=== PATIENT | female | born 1945 | race Hispanic/Latino ===

== ENCOUNTER 2017-01-04 11:05 | Outpatient (CLI) | payer MEDICARE, OTHER ==
--- NOTE | 2017-01-05 11:25 | PET Report ---
WHOLE BODY PET/CT:01/04/17 CLINICAL: Melanoma restaging. RADIOPHARMACEUTICAL: 14.43mCi F18-FDG. COMPARISON: 11/09/16 PET/CT TECHNIQUE- Following intravenous injection of F-18 FDG and an approximately 60 minute uptake period, CT and PET images from the top of the cranium through the feet were acquired with the patient in the fasted state. No contrast was administered. The CT protocol used for this PET CT study is designed for attenuation correction and anatomic localization of PET abnormalities. This engineering mgr CT is not desired to produce and cannot replace, rnail-gh-set-art diagnostic CT scans with specific imaging protocols for different body parts and indications. Plasma glucose at the time of this test: 107g/dl. The standardized uptake values (SUV) are normalized to patient body weight and indicate the highest activity concentration (SUV max) in a given disease site. FINDINGS: Brain--Physiologic FDG uptake in the visualized regions of the brain. Neck--No abnormal uptake. Chest--Physiologic FDG uptake in mediastinal blood pool and myocardium. Lungs--No abnormal uptake. No pulmonary nodule or mass. Pleura/pericardium--No abnormal uptake. Thoracic nodes--No abnormal uptake. Mediastinal lymph nodes have decreased in size and the FDG uptake in mediastinal lymph nodes has resolved. Hepatobiliary--No abnormal uptake. Liver background SUV mean, as a reference for comparing FDG studies, is 4.5 compared to 3.8 on the last exam. Spleen--No abnormal uptake. Pancreas--No abnormal uptake. Adrenal Glands--No abnormal uptake. Kidneys/Ureters/Bladder--No abnormal uptake. Abdominopelvic Nodes--No abnormal uptake. Bowel/Peritoneum/Mesentery--No abnormal uptake. Pelvic organs--No abnormal uptake. Bones/Soft Tissues--No abnormal uptake. Extremities--No abnormal uptake. IMPRESSION: Negative study with resolution of FDG avid mediastinal lymphadenopathy.
== END 2017-01-04 11:06 | disposition home or self-care (01) ==
LOC: PET 11:05
PROVIDERS: ATTEND Internal Medicine Hematology & Oncology
DX: C43.52 Malignant melanoma of skin of breast (principal)
CPT/HCPCS: 78815; 82962; A9552

== ENCOUNTER 2017-03-29 10:49 | Outpatient (CLI) | payer MEDICARE, OTHER ==
--- NOTE | 2017-03-31 10:09 | PET Report ---
WHOLE BODY PET/CT:03/29/17 CLINICAL: Melanoma restaging. RADIOPHARMACEUTICAL: 14.213mCi F18-FDG. COMPARISON: 01/04/17 and 11/09/16 PET/CT TECHNIQUE- Following intravenous injection of F-18 FDG in a left antecubital vein and an approximately 60 minute uptake period, CT and PET images from the top of the cranium through the feet were acquired with the patient in the fasted state. No contrast was administered. The CT protocol used for this PET CT study is designed for attenuation correction and anatomic localization of PET abnormalities. This help desk operator CT is not desired to produce and cannot replace, poutl-vo-fgj-art diagnostic CT scans with specific imaging protocols for different body parts and indications. Plasma glucose at the time of this test: 97g/dl. The standardized uptake values (SUV) are normalized to patient body weight and indicate the highest activity concentration (SUV max) in a given disease site. FINDINGS: Brain--Physiologic FDG uptake in the visualized regions of the brain. Neck--No abnormal uptake. Chest--Physiologic FDG uptake in mediastinal blood pool and myocardium. Status post right mastectomy. Lungs--No abnormal uptake. No pulmonary nodule or mass. Pleura/pericardium--No abnormal uptake. Thoracic nodes--Multiple bilateral hilar and mediastinal FDG avid lymph nodes. However, the lymph nodes are stable in size since the last 2 exams and the FDG uptake is slightly less than on the 11/09/16 exam. Right retrocaval pretracheal lymph node with SUV 5.5 compared to 6.3. AP window lymph node with SUV 5.0 compared to 6.1. Hepatobiliary--No abnormal uptake. Liver background SUV mean is 4.1 compared to 4.4. No liver mass. Spleen--No abnormal uptake. Pancreas--No abnormal uptake. Adrenal Glands--No abnormal uptake. Kidneys/Ureters/Bladder--No abnormal uptake. Abdominopelvic Nodes--No abnormal uptake. Bowel/Peritoneum/Mesentery--No abnormal uptake. Pelvic organs--No abnormal uptake. Bones/Soft Tissues--No abnormal uptake. Extremities--No abnormal uptake. IMPRESSION: Probably benign recurrent FDG uptake in mediastinal and bilateral hilar lymph nodes. This may be explained by a URI. The study is otherwise negative.
== END 2017-03-29 10:50 | disposition home or self-care (01) ==
LOC: PET 10:49
PROVIDERS: ATTEND Internal Medicine Hematology & Oncology
DX: C43.52 Malignant melanoma of skin of breast (principal); Z90.11 Acquired absence of right breast and nipple
CPT/HCPCS: 78815; 82962; A9552

== ENCOUNTER 2017-07-05 10:58 | Outpatient (CLI) | payer MEDICARE, OTHER ==
--- NOTE | 2017-07-06 15:15 | PET Report ---
WHOLE BODY PET/CT:07/05/17 CLINICAL: Melanoma restaging. RADIOPHARMACEUTICAL: 15.85mCi F18-FDG. COMPARISON: 03/29/17 PET/CT TECHNIQUE- Following intravenous injection of F-18 FDG and an approximately 60 minute uptake period, CT and PET images from the top of the cranium through the feet were acquired with the patient in the fasted state. No contrast was administered. The CT protocol used for this PET CT study is designed for attenuation correction and anatomic localization of PET abnormalities. This floorworker lasting CT is not desired to produce and cannot replace, lgfcc-mm-vtg-art diagnostic CT scans with specific imaging protocols for different body parts and indications. Plasma glucose at the time of this test: 105g/dl. The standardized uptake values (SUV) are normalized to patient body weight and indicate the highest activity concentration (SUV max) in a given disease site. FINDINGS: Brain--Physiologic FDG uptake in the visualized regions of the brain. Neck--No abnormal uptake. Chest--Physiologic FDG uptake in mediastinal blood pool and myocardium. Lungs--No abnormal uptake. No pulmonary nodule or mass. Pleura/pericardium--No abnormal uptake. Thoracic nodes--Mediastinal lymph nodes are either stable in size or smaller with lower SUV. The right retrocaval lymph node SUV 4.0 compared to 5.5. The AP window lymph node measures 3.5 x 5.0. Hilar lymph nodes have lower SUV. Hepatobiliary--No abnormal uptake. Liver background SUV mean, as a reference for comparing FDG studies, is 4.4 compared to 4.7. Spleen--No abnormal uptake. Pancreas--No abnormal uptake. Adrenal Glands--No abnormal uptake. Kidneys/Ureters/Bladder--No abnormal uptake. Abdominopelvic Nodes--No abnormal uptake. Bowel/Peritoneum/Mesentery--No abnormal uptake. Pelvic organs--No abnormal uptake. Bones/Soft Tissues--No abnormal uptake. Extremities--No abnormal uptake. No mass or lymphadenopathy. IMPRESSION: Decreased FDG uptake in mediastinal and bilateral hilar lymph nodes consistent with benign pathology. No suspicious findings.
== END 2017-07-05 10:59 | disposition home or self-care (01) ==
LOC: PET 10:58
PROVIDERS: ATTEND Internal Medicine Hematology & Oncology
DX: C43.52 Malignant melanoma of skin of breast (principal); I10 Essential (primary) hypertension; E78.00 Pure hypercholesterolemia, unspecified; I25.10 Atherosclerotic heart disease of native coronary artery without angina pectoris; Z79.899 Other long term (current) drug therapy
CPT/HCPCS: 78816; 82962; A9552

== ENCOUNTER 2017-07-10 09:36 | Emergency (ER) | payer MEDICARE, OTHER ==
[2017-07-10] MEDS ORDERED: NACL 0.9% 1000 ML 1,000 ML IV ONE ×2 (10:00→10:19)
--- NOTE | 2017-07-10 10:01 | Emergency Department Report ---
Stated Complaint: WEAKNESS Time Seen by Provider: 07/10/17 09:57 - HPI History of Present Illness: PT c/o chemo. PT with generalized weakness today. PT reports subjective fever , treat with Tylenol - ROS Review of Systems: + subjective fever + decreased po intake - Exam Physical Exam: Pt is alert and appropriate, MSE screening note: Focused history and physical exam performed. Due to findings the following was ordered: ekg, labs, fluids ED Disposition for MSE Condition: Stable
--- NOTE | 2017-07-10 10:42 | XRay Report ---
AP CHEST: HISTORY: chest pain AP view of the chest demonstrates a normal mediastinal and cardiac contour with clear lungs and normal bony and soft tissue structures. IMPRESSION: No acute cardiopulmonary process.
[2017-07-10 11:12] LABS: Basophils % (Auto) 0.1 % (0.0-1.8); Hemoglobin 12.7 gm/dl (10.1-14.3); Mean Corpuscular HGB Conc 33 % (30-34); Mean Corpuscular Hemoglobin 27 pg (28-32); Mean Corpuscular Volume 80 fl (79-97); Platelet Count 163 K/mm3 (140-440); Red Blood Count 4.76 M/mm3 (3.65-5.03); Red Cell Distribution Width 15.1 % (13.2-15.2); White Blood Count 12.5 K/mm3 (4.5-11.0)
[2017-07-10 11:38] LABS: Alanine Aminotransferase 9 units/L (7-56); Albumin 2.8 g/dL (3.9-5); Albumin/Globulin Ratio 0.7 %; Alkaline Phosphatase 98 units/L (35-129); Anion Gap 20 mmol/L; BUN/Creatinine Ratio 20.71; Blood Urea Nitrogen 29 mg/dL (7-17); Calcium 8.8 mg/dL (8.4-10.2); Carbon Dioxide 22 mmol/L (22-30); Chloride 92.4 mmol/L (98-107); Glucose 127 mg/dL (65-100); Potassium 3.4 mmol/L (3.6-5.0); Sodium 131 mmol/L (137-145); Total Protein 6.8 g/dL (6.3-8.2)
[2017-07-10 12:22] LABS: Bacteria,Urine 4+ /HPF (Negative); Bilirubin,Urine NEG (Negative); Blood,Urine MOD (Negative); Ketones,Urine NEG (Negative); Leukocyte Esterase,Urine LG (Negative); Mucus,Urine 3+ /HPF; Nitrite,Urine NEG (Negative); Urobilinogen,Urine < 2.0 mg/dL (<2.0)
[2017-07-10] MEDS ORDERED: ROCEPHIN/NS 2 GM/100 ML 2 GM/100 ML BAG IV ONE (13:24)
--- NOTE | 2017-07-10 14:41 | Emergency Department Report ---
HPI - General Chief Complaint: Weakness Time Seen by Provider: 07/10/17 09:57 - HPI HPI: 72-year-old white female with a history of melanoma brought to ED with weakness. Patient complained of diarrhea, generalized weakness, not feeling well for the past 3 days. Patient has been getting whole chemotherapy at home. Patient is brought by who state that they called patient's oncologist , who recommended coming to ED for fluid. The patient complained of mild dysuria, increased urinary frequency. Patient denies any alleviating or exacerbating factors. ED Past Medical Hx - Past Medical History Hx Hypertension: Yes (FOR 18 YRS, DR. GALICIA- PCP) Hx of Cancer: Yes (Melanoma) Hx Arthritis: Yes Hx Headaches / Migraines: Yes (MIGRAINES) - Surgical History Hx Breast Surgery: Yes (LEFT BREAST EXCISIONAL BX IN 1963, RIGHT BREAST & AXILLARY CORE BX 07-20-14) - Social History Smoking Status: Never Smoker Substance Use Type: None - Medications Home Medications: Home Medications Medication Instructions Recorded Confirmed Last Taken Type Bisoprolol/Hctz [Ziac 10-6.25] 1 each PO DAILY 07/30/14 08/05/14 08/05/14 08:30 History Cyanocobalamin (Vitamin B-12) 1,000 mcg PO QDAY 07/30/14 08/05/14 08/04/14 09: 00 History [B-12] Hydrochlorothiazide 12.5 mg PO QDAY PRN 07/30/14 08/05/14 08/03/14 History Lisinopril 20 mg PO QDAY 07/30/14 08/05/14 08/05/14 08:30 History Pravastatin (Nf) [Pravachol] 40 mg PO QDAY 07/30/14 08/05/14 08/05/14 08:30 History amLODIPine [Norvasc] 5 mg PO DAILY 07/30/14 08/05/14 08/05/14 08:30 History HYDROcodone/ACETAMINOPHEN [Lortab 1 each PO 6XD PRN #20 tablet 08/06/14 Unknown Rx 5-325 mg Tablet] Cephalexin [Keflex] 500 mg PO Q12HR #20 cap 07/10/17 Unknown Rx ED Review of Systems ROS: Stated complaint: WEAKNESS Other details as noted in HPI Comment: All other systems reviewed and negative Musculoskeletal: as per HPI Neurological: weakness Physical Exam - Physical Exam Vital Signs: Vital Signs 07/10/17 07/10/17 07/10/17 09:50 10:22 11:10 Temperature 98.4 F 98.3 F Pulse Rate 96 H 82 67 Respiratory 16 16 16 Rate Blood Pressure 59/37 109/53 111/54 O2 Sat by Pulse 99 96 100 Oximetry 07/10/17 07/10/17 12:44 14:19 Temperature 97.5 F L 97.6 F Pulse Rate 64 64 Respiratory 16 16 Rate Blood Pressure 128/63 116/55 O2 Sat by Pulse 96 96 Oximetry Physical Exam: - General Limitations: No Limitations General appearance: alert, in no apparent distress - Head Head exam: Present: atraumatic, normocephalic - Eye Eye exam: Present: normal appearance - ENT ENT exam: Present: mucous membranes moist - Neck Neck exam: Present: normal inspection - Respiratory Respiratory exam: Present: normal lung sounds bilaterally. Absent: respiratory distress - Cardiovascular Cardiovascular Exam: Present: regular rate, normal rhythm. Absent: systolic murmur, diastolic murmur, rubs, gallop - GI/Abdominal GI/Abdominal exam: Present: soft, normal bowel sounds - Extremities Exam Extremities exam: Present: normal inspection - Back Exam Back exam: Present: normal inspection - Neurological Exam Neurological exam: Present: alert, oriented X3, CN II-XII intact - Psychiatric Psychiatric exam: Present:normal affect - Skin Skin exam: Present: warm, dry, intact, normal color. Absent: rash ED Course Vital Signs 07/10/17 07/10/17 07/10/17 09:50 10:22 11:10 Temperature 98.4 F 98.3 F Pulse Rate 96 H 82 67 Respiratory 16 16 16 Rate Blood Pressure 59/37 109/53 111/54 O2 Sat by Pulse 99 96 100 Oximetry 07/10/17 07/10/17 12:44 14:19 Temperature 97.5 F L 97.6 F Pulse Rate 64 64 Respiratory 16 16 Rate Blood Pressure 128/63 116/55 O2 Sat by Pulse 96 96 Oximetry - Reevaluation(s) Reevaluation #1: 07/10/17 14:39 After 2 L of fluid patient feels much better and wants to go home. Patient advised about admission for observation due to her initial low BP, but she says she feels fine denies confusion, is at bedside confirmed the patient is back to baseline patient has appointment tomorrow with oncologist will DC home. ED Medical Decision Making - Lab Data Result diagrams: 07/10/17 10:43 07/10/17 10:43 Critical care attestation.: If time is entered above; I have spent that time in minutes in the direct care of this critically ill patient, excluding procedure time. ED Disposition Clinical Impression: Dehydration UTI (urinary tract infection) Qualifiers: Urinary tract infection type: acute cystitis Hematuria presence: without hematuria Qualified Code(s): N30.00 - Acute cystitis without hematuria Disposition: DC-01 TO HOME OR SELFCARE Is pt being admited?: No Does the pt Need Aspirin: No Condition: Stable Instructions: Urinary Tract Infection in Women (ED), Dehydration (ED) Prescriptions: Cephalexin [Keflex] 500 mg PO Q12HR #20 cap Referrals: PRIMARY CARE, [Primary Care Provider] - 3-5 Days
[2017-07-10 15:00] VITALS: BP 141/82
== END 2017-07-10 15:05 | disposition home or self-care (01) ==
LOC: ED 09:36
DX: N30.00 Acute cystitis without hematuria (principal); E86.0 Dehydration; I10 Essential (primary) hypertension; G43.909 Migraine, unspecified, not intractable, without status migrainosus; M19.90 Unspecified osteoarthritis, unspecified site; Z85.820 Personal history of malignant melanoma of skin
CPT/HCPCS: 36415; 71010; 80053; 81001; 82140; 83735; 84484; 85025; 93005; 93010; 96361; 96365; 99284; J0696; J7030

== ENCOUNTER 2017-09-25 10:31 | Outpatient (CLI) | payer MEDICARE, OTHER ==
--- NOTE | 2017-09-25 12:10 | Mammography Report ---
Left screening mammogram: Right mastectomy for melanoma. Routine views of the left breast demonstrates a heterogeneous breast pattern. There is no focal mass, no architectural distortion, and no suspicious calcification. Comparison to prior study in September 2015 shows no interval change. CAD used. Impression: Stable left breast pattern. Recommendation: Annual mammogram followup. BI-RADS CATEGORY: 1 = Negative ACR BI-RADS MAMMOGRAPHIC CODES: 0 = Needs additional imaging evaluation; 1 = Negative; 2 = Benign; 3 = Probably benign; 4 = Suspicious; 5 = Malignant; 6 = Known biopsy-proven malignancy COMMENT: 1. Dense breast tissue, i.e., adenosis, fibrocystic changes, etc., may obscure an underlying neoplasm. 2. Approximately 10% of cancers are not detected with mammography. 3. A negative mammography report should not delay biopsy if a clinically suspicious mass is present. On
== END 2017-09-25 10:32 | disposition home or self-care (01) ==
LOC: SPVWC 10:31
PROVIDERS: ATTEND Internal Medicine Hematology & Oncology
DX: Z12.31 Encounter for screening mammogram for malignant neoplasm of breast (principal); Z90.11 Acquired absence of right breast and nipple
CPT/HCPCS: 77067; G0202

== ENCOUNTER 2017-09-27 09:31 | Outpatient (CLI) | payer MEDICARE, OTHER ==
--- NOTE | 2017-10-02 09:32 | PET Report ---
WHOLE BODY PET/CT:08/26/15 CLINICAL: Melanoma restaging. RADIOPHARMACEUTICAL: 13.46mCi F18-FDG. COMPARISON: 07/05/17 PET/CT TECHNIQUE- Following intravenous injection of F-18 FDG and an approximately 60 minute uptake period, CT and PET images from the top of the cranium through the feet were acquired with the patient in the fasted state. No contrast was administered. The CT protocol used for this PET CT study is designed for attenuation correction and anatomic localization of PET abnormalities. This computer specialist CT is not desired to produce and cannot replace, zzodg-ex-llt-art diagnostic CT scans with specific imaging protocols for different body parts and indications. Plasma glucose at the time of this test: 111g/dl. The standardized uptake values (SUV) are normalized to patient body weight and indicate the highest activity concentration (SUV max) in a given disease site. FINDINGS: Brain--Physiologic FDG uptake in the visualized regions of the brain. Neck--No abnormal uptake. Chest--Physiologic FDG uptake in mediastinal blood pool and myocardium. Lungs--No abnormal uptake. No pulmonary nodule or mass. Pleura/pericardium--No abnormal uptake. Thoracic nodes--Mediastinal lymph nodes have increased FDG uptake. The largest is in the AP window and measures 2.0 x 1.0 cm with SUV 6.9 compared to 1.9 x 1.0 cm and SUV 3.8. However, there was FDG uptake and SUV of 6 on 11/09/16. A subcentimeter right paratracheal lymph node in addition the 5.0. No new lymph nodes. Hepatobiliary--No abnormal uptake. Liver background SUV mean, as a reference for comparing FDG studies, is 4.0 compared to 3.9 on the last exam. No liver mass. Spleen--No abnormal uptake. Pancreas--No abnormal uptake. Adrenal Glands--No abnormal uptake. Kidneys/Ureters/Bladder--No abnormal uptake. Abdominopelvic Nodes--No abnormal uptake. Bowel/Peritoneum/Mesentery--No abnormal uptake. Pelvic organs--No abnormal uptake. Bones/Soft Tissues--No abnormal uptake. Extremities--No suspicious uptake. Physiologic uptake in the left calf muscles. IMPRESSION: Increased FDG uptake in mediastinal lymph nodes which is probably benign. This activity has waxed and waned over several studies. Lymph nodes are stable in size and number since the last exam. No new suspicious finding.
== END 2017-09-27 09:32 | disposition home or self-care (01) ==
LOC: PET 09:31
PROVIDERS: ATTEND Internal Medicine Hematology & Oncology
DX: C43.52 Malignant melanoma of skin of breast (principal); Z90.11 Acquired absence of right breast and nipple; Z79.899 Other long term (current) drug therapy
CPT/HCPCS: 78815; 82962; A9552

== ENCOUNTER 2018-01-17 08:35 | Outpatient (CLI) | payer MEDICARE, OTHER ==
--- NOTE | 2018-01-21 14:11 | PET Report ---
WHOLE BODY PET/CT:01/17/18 CLINICAL: Melanoma restaging. RADIOPHARMACEUTICAL: 13.162mCi F18-FDG. COMPARISON: 09/27/17 PET/CT TECHNIQUE- Following intravenous injection of F-18 FDG and an approximately 60 minute uptake period, CT and PET images from the top of the cranium through the feet were acquired with the patient in the fasted state. No contrast was administered. The CT protocol used for this PET CT study is designed for attenuation correction and anatomic localization of PET abnormalities. This administrative manager CT is not desired to produce and cannot replace, ojsiw-io-oaa-art diagnostic CT scans with specific imaging protocols for different body parts and indications. Plasma glucose at the time of this test: 102g/dl. The standardized uptake values (SUV) are normalized to patient body weight and indicate the highest activity concentration (SUV max) in a given disease site. FINDINGS: Brain--Physiologic FDG uptake in the visualized regions of the brain. Neck--No abnormal uptake. Chest--Physiologic FDG uptake in mediastinal blood pool and myocardium. Lungs--No abnormal uptake. No pulmonary nodule or mass. Pleura/pericardium--No abnormal uptake. Thoracic nodes--No abnormal uptake. Hepatobiliary--No abnormal uptake. Liver background SUV mean, as a reference for comparing FDG studies, is 3.8 compared to 5.0 on the last exam. No liver mass.. Spleen--No abnormal uptake. Pancreas--No abnormal uptake. Adrenal Glands--No abnormal uptake. Kidneys/Ureters/Bladder--No abnormal uptake. Abdominopelvic Nodes--No abnormal uptake. Bowel/Peritoneum/Mesentery--No abnormal uptake. Pelvic organs--No abnormal uptake. Bones/Soft Tissues--No abnormal uptake. Extremities--No suspicious uptake. Benign physiologic uptake in bilateral lower leg muscles. Other findings: Status post right mastectomy. IMPRESSION: Negative Studywith no evidence of disease recurrence or metastasis.
== END 2018-01-17 08:36 | disposition home or self-care (01) ==
LOC: PET 08:35
PROVIDERS: ATTEND Internal Medicine Hematology & Oncology
DX: C43.52 Malignant melanoma of skin of breast (principal); I25.10 Atherosclerotic heart disease of native coronary artery without angina pectoris; I10 Essential (primary) hypertension; E78.00 Pure hypercholesterolemia, unspecified; Z90.11 Acquired absence of right breast and nipple; Z79.899 Other long term (current) drug therapy
CPT/HCPCS: 78815; 82962; A9552

== ENCOUNTER 2018-04-11 09:37 | Outpatient (CLI) | payer MEDICARE, OTHER ==
--- NOTE | 2018-04-15 08:51 | PET Report ---
PET SB TO MT SUBSEQUENT: HISTORY: Melanoma. TECHNIQUE: 15.6 millicuries F-18 FDG was administered intravenously. Noncontrast CT images and PET images were obtained from the vertex of the skull to the feet. Fused images were reviewed on a workstation. The patient's blood glucose level measured 89. COMPARISON: 01/17/18. FINDINGS: BRAIN: physiologic FDG uptake in the imaged brain. NECK: physiologic FDG uptake. MEDIASTINUM: A mildly enlarged lymph node in the aortopulmonary window is stable in size measuring 2.1 x 1.2 cm in axial plane. Max SUV remains mildly elevated and unchanged at 4.2. There is a second 1 cm lymph node in the aortopulmonary window with normal uptake which is also unchanged. No new mediastinal lymphadenopathy or hypermetabolic activity. LUNGS: physiologic FDG uptake. No pulmonary nodule or mass is identified. PLEURA/PERICARDIUM: physiologic FDG uptake. HEPATOBILIARY: physiologic FDG uptake. Mean liver SUV measures 3.5 as opposed to 3.9 on the previous exam. PANCREAS: physiologic FDG uptake. SPLEEN: physiologic FDG uptake. ADRENAL GLANDS: physiologic FDG uptake. KIDNEYS/RENAL COLLECTING SYSTEMS: physiologic FDG uptake. BOWEL/MESENTERY: physiologic FDG uptake. PELVIC VISCERA: physiologic FDG uptake. ABDOMINAL/PELVIC LYMPH NODES: physiologic FDG uptake. MUSCULOSKELETAL: physiologic FDG uptake. Stable right mastectomy changes. IMPRESSION: No change since 01/17/18. There is a mildly enlarged and hypermetabolic lymph node in the aortopulmonary window as outlined above which has not significantly changed over multiple previous exams. This may represent a reactive lymph node.
== END 2018-04-11 09:38 | disposition home or self-care (01) ==
LOC: PET 09:37
PROVIDERS: ATTEND Internal Medicine Hematology & Oncology
DX: C43.52 Malignant melanoma of skin of breast (principal); R79.89 Other specified abnormal findings of blood chemistry
CPT/HCPCS: 78815; 82962; A9552

== ENCOUNTER 2018-11-21 08:37 | Outpatient (CLI) | payer MEDICARE, OTHER ==
--- NOTE | 2018-11-22 11:04 | PET Report ---
WHOLE BODY PET/CT:08/26/15 CLINICAL: Melanoma right breast restaging. RADIOPHARMACEUTICAL: 11.71mCi F18-FDG. COMPARISON: 08/22/18 PET/CT TECHNIQUE- Following intravenous injection of F-18 FDG and an approximately 60 minute uptake period, CT and PET images from the top of the cranium through the feet were acquired with the patient in the fasted state. No contrast was administered. The CT protocol used for this PET CT study is designed for attenuation correction and anatomic localization of PET abnormalities. This deliver driver CT is not desired to produce and cannot replace, kfmwk-wd-sff-art diagnostic CT scans with specific imaging protocols for different body parts and indications. Plasma glucose at the time of this test: 105g/dl. The standardized uptake values (SUV) are normalized to patient body weight and indicate the highest activity concentration (SUV max) in a given disease site. FINDINGS: Brain--Physiologic FDG uptake in the visualized regions of the brain. Neck--No abnormal uptake. Physiologic uptake in mucosal structures. No mass or lymphadenopathy. Chest--Physiologic FDG uptake in mediastinal blood pool and myocardium. Lungs--No abnormal uptake. No pulmonary nodule or mass. Pleura/pericardium--No abnormal uptake. Thoracic nodes--Stable mediastinal lymph nodes. A dominant AP window lymph node measures 2.0 x 1.0 cm with SUV 3.1 compared to 3.7. Stable mild uptake in bilateral hilar lymph nodes with a dominant lymph node on the left with SUV 3.7 and a dominant lymph node on the right with SUV 2.9. Hepatobiliary--No abnormal uptake. Liver background SUV mean, as a reference for comparing FDG studies, is 3.6 compared to 3.9 on the last exam. No liver mass. Spleen--No abnormal uptake. Pancreas--No abnormal uptake. Adrenal Glands--No abnormal uptake. Kidneys/Ureters/Bladder--No abnormal uptake. Abdominopelvic Nodes--No abnormal uptake. Bowel/Peritoneum/Mesentery--No abnormal uptake. Pelvic organs--No abnormal uptake. Bones/Soft Tissues--Physiologic uptake in calf muscles. No abnormal uptake and no suspicious bone lesion. Extremities--No abnormal uptake. Other findings: Status post right mastectomy. No chest wall mass. IMPRESSION: Stable disease with no new findings.
== END 2018-11-21 08:38 | disposition home or self-care (01) ==
LOC: PET 08:37
PROVIDERS: ATTEND Internal Medicine Hematology & Oncology
DX: C43.52 Malignant melanoma of skin of breast (principal); Z88.8 Allergy status to other drugs, medicaments and biological substances; Z91.09 Other allergy status, other than to drugs and biological substances
CPT/HCPCS: 78815; 82962; A9552

== ENCOUNTER 2019-02-20 11:42 | Outpatient (CLI) | payer MEDICARE, OTHER ==
--- NOTE | 2019-02-21 14:09 | PET Report ---
PET SB TO MT SUBSEQUENT: HISTORY: Restaging of metastatic melanoma. TECHNIQUE: 13.2 millicuries F-18 FDG was administered intravenously. Noncontrast CT images and PET images were obtained from the vertex of the skull through the feet. Fused images were reviewed on a workstation. The patient's blood glucose level measured 87. COMPARISON: Multiple previous exams with the most recent being 11/21/18. FINDINGS: BRAIN: physiologic FDG uptake. NECK: physiologic FDG uptake. MEDIASTINUM: The previously described mediastinal lymph nodes are stable in size and number. No new adenopathy is detected. Metabolic activity of the lymph nodes continues to wax and wane. For instance, an AP window lymph node measures 1.8 x 1.0 cm and demonstrates a max SUV 3.0 as opposed to 3.1 on the previous exam. A right hilar lymph node demonstrates a max SUV of 3.8 as opposed to 2.9 on the previous exam. A left hilar lymph node demonstrates a max SUV of 4.2 as opposed to 3.7 on the previous exam. LUNGS: physiologic FDG uptake. PLEURA/PERICARDIUM: physiologic FDG uptake. THORACIC LYMPH NODES: physiologic FDG uptake. HEPATOBILIARY: physiologic FDG uptake. Mean liver SUV measures 4.0 as opposed to 3.6 on the previous exam. PANCREAS: physiologic FDG uptake. SPLEEN: physiologic FDG uptake. ADRENAL GLANDS: physiologic FDG uptake. KIDNEYS/RENAL COLLECTING SYSTEMS: physiologic FDG uptake. BOWEL/MESENTERY: physiologic FDG uptake. PELVIC VISCERA: physiologic FDG uptake. ABDOMINAL/PELVIC LYMPH NODES: physiologic FDG uptake. MUSCULOSKELETAL: physiologic FDG uptake. IMPRESSION: Stable findings since 11/21/18. Questionable mediastinal lymph nodes appear stable in size and number with mildly elevated uptake values. No new areas of disease are identified.
== END 2019-02-20 11:43 | disposition home or self-care (01) ==
LOC: PET 11:42
PROVIDERS: ATTEND Internal Medicine Hematology & Oncology
DX: C43.52 Malignant melanoma of skin of breast (principal); E78.00 Pure hypercholesterolemia, unspecified; I10 Essential (primary) hypertension; M19.90 Unspecified osteoarthritis, unspecified site
CPT/HCPCS: 78815; 82962; A9552

== ENCOUNTER 2019-05-08 11:02 | Outpatient (CLI) | payer MEDICARE, OTHER ==
--- NOTE | 2019-05-09 09:48 | PET Report ---
WHOLE BODY PET/CT:05/08/19 CLINICAL: Melanoma restaging. RADIOPHARMACEUTICAL: 15.451mCi F18-FDG. COMPARISON: 02/20/19 PET/CT TECHNIQUE- Following intravenous injection of F-18 FDG and an approximately 60 minute uptake period, CT and PET images from the top of the cranium through the feet were acquired with the patient in the fasted state. No contrast was administered. The CT protocol used for this PET CT study is designed for attenuation correction and anatomic localization of PET abnormalities. This street roller engineer CT is not desired to produce and cannot replace, [id number] diagnostic CT scans with specific imaging protocols for different body parts and indications. Plasma glucose at the time of this test: 109g/dl. The standardized uptake values (SUV) are normalized to patient body weight and indicate the highest activity concentration (SUV max) in a given disease site. FINDINGS: Brain--Physiologic FDG uptake in the visualized regions of the brain. Neck--No abnormal uptake. No mass or lymphadenopathy. Chest--Physiologic FDG uptake in mediastinal blood pool and myocardium. Lungs--No abnormal uptake. No pulmonary nodule or mass. Pleura/pericardium--No abnormal uptake. Thoracic nodes--No abnormal uptake. Small mediastinal lymph nodes are stable in size. Hepatobiliary--No abnormal uptake. Spleen--No abnormal uptake. Pancreas--No abnormal uptake. Adrenal Glands--No abnormal uptake. Kidneys/Ureters/Bladder--No abnormal uptake. Abdominopelvic Nodes--No abnormal uptake. Bowel/Peritoneum/Mesentery--No abnormal uptake. Pelvic organs--No abnormal uptake. Bones/Soft Tissues--No abnormal uptake and no suspicious lesions. Extremities--No abnormal uptake. Other findings--Status post right mastectomy. IMPRESSION: Negative Study
== END 2019-05-08 11:03 | disposition home or self-care (01) ==
LOC: PET 11:02
PROVIDERS: ATTEND Internal Medicine Hematology & Oncology
DX: C43.52 Malignant melanoma of skin of breast (principal); E78.00 Pure hypercholesterolemia, unspecified; I10 Essential (primary) hypertension; M19.90 Unspecified osteoarthritis, unspecified site; R59.0 Localized enlarged lymph nodes
CPT/HCPCS: 78815; 82962; A9552

== ENCOUNTER 2019-09-04 11:38 | Outpatient (CLI) | payer MEDICARE, OTHER ==
--- NOTE | 2019-09-05 08:52 | PET Report ---
PET/CT HISTORY: C43.52. Restaging of melanoma. Restaging of right breast cancer. TECHNIQUE: The patient's fasting blood glucose was 93. The patient weighed 160 lbs. The patient wa s injected with 15.5 mCi of FDG in the left antecubital fossa at 1212 hours and imaging was started a t 1317 hours. The patient was imaged from the vertex of the skull through the lower extremities.. Al l CT scans at this location are performed using CT dose reduction for ALARA by means of automated exp osure control. Images were reviewed on a workstation. COMPARISON: 05/08/2019 FINDINGS: IBRAIN: [Physiologic FDG uptake] NECK: [Physiologic FDG uptake] CHEST WALL: [Physiologic FDG uptake]. Stable right mastectomy changes. MEDIASTINUM: [Multiple small and mildly hypermetabolic lymph nodes are identified in the AP window c jimmy, bilateral hilar chain and subcarinal chain. These lymph nodes appear stable in size and number. For instance, and AP window lymph node on CT image 98 measures 1.7 x 1.1 cm and demonstrates a max S UV of 4.9. A normal-sized subcarinal lymph node demonstrates a max SUV of 4.5. A normal size right hi lar lymph node demonstrates a max SUV of 4.6. All of these lymph nodes were hypometabolic on the prev ious examination.] LUNGS: [Physiologic FDG uptake]. No pulmonary nodule or mass is identified. HEPATOBILIARY: [Physiologic FDG uptake] mean liver SUV measures 5.0 as opposed to 4.6 on the previou s exam. No obvious liver mass. PANCREAS: [Physiologic FDG uptake SPLEEN: [Physiologic FDG uptake] KIDNEYS/BLADDER: [Physiologic FDG uptake]. 5 mm calyceal stone at the inferior pole of the left kidn ey is noted. ADRENAL GLANDS: [Physiologic FDG uptake] GI/MESENTERY: [Physiologic FDG uptake] PELVIC VISCERA: [Physiologic FDG uptake] ABDOMINAL AND PELVIC LYMPH NODES: [Physiologic FDG uptake] OSSEOUS STRUCTURES: [Physiologic FDG uptake]. No suspicious bony lesions are identified. LOWER EXTREMITIES: There is a solitary focus of increased radiotracer uptake in the posterior medial left thigh subcutaneous tissues with max SUV measuring 3.5. There is a very subtle ill-defined densit y in this area on the CT images on image 240 but no discrete nodule. This may represent a focus of tr auma or inflammation. A subcutaneous metastasis is difficult to exclude given the PET uptake. I see n o true nodule in this area on the CT images. There is mild diffuse muscular uptake in the bilateral peroneus muscles distal to the knees, left gre ater than right. This does not appear to be pathologic. IMPRESSION: Previously described waxing and waning mediastinal lymph nodes are again identified. The lymph nodes are stable in size and number although most of these lymph nodes now demonstrate mild hypermetabolic activity with maximum of the measuring up to 4.9. Please see above. There is a focus of new subcutaneous uptake in the posterior medial left thigh as described above. No discrete nodule is identified in this area on the CT images. A new subcutaneous metastasis is diffic ult to exclude. This may represent a focus of inflammation or trauma. Please correlate with the luis ent and consider follow-up. Signer Name: Graham Arredondo Jr, MD Signed: 09/05/2019 8:48 AM Workstation Name: [id number]
== END 2019-09-04 11:39 | disposition home or self-care (01) ==
LOC: PET 11:38
PROVIDERS: ATTEND Internal Medicine Hematology & Oncology
DX: C43.52 Malignant melanoma of skin of breast (principal); N20.0 Calculus of kidney; E78.00 Pure hypercholesterolemia, unspecified; I10 Essential (primary) hypertension; M19.90 Unspecified osteoarthritis, unspecified site
CPT/HCPCS: 78815; 82962; A9552

== ENCOUNTER 2019-10-21 11:23 | Outpatient (CLI) | payer MEDICARE, OTHER ==
--- NOTE | 2019-10-22 10:54 | Mammography Report ---
DIGITAL SCREENING MAMMOGRAM WITH CAD, 10/21/2019 INDICATION: Routine screening mammography. History of right breast melanoma status post right mastect orestes TECHNIQUE: Digital left 2D mammography was obtained in the craniocaudal and mediolateral oblique pro jections. This examination was interpreted with the benefit of Computer-Aided Detection analysis. COMPARISON: 09/25/2017 FINDINGS: Breast Density: The breast is heterogeneously dense, which may obscure small masses. There is no evid ence of dominant mass, suspicious calcifications or architectural distortion in the left breast. A fe w benign calcifications, some of which are arterial. IMPRESSION: No mammographic evidence of malignancy. Follow up recommendation: Routine yearly BI-RADS Category 2: Benign. A "normal" or negative report should not discourage follow up or biopsy of a clinically significant f inding. A written summary of these findings will be mailed to the patient. The patient will be entered into a mammography reporting system which will generate a reminder letter for the patient's next appointmen t at the appropriate interval. The [employer] recommends yearly mammograms starting at age 40 and continuing as l reginald as a woman is in good health. Breast MRI is recommended for women with an approximate 20-25% or greater lifetime risk of breast cancer, including women with a strong family history of breast or ova sahil cancer or who have been treated for Hodgkin's disease. Signer Name: Leonard Diaz MD Signed: 10/22/2019 10:50 AM Workstation Name: [id number]
== END 2019-10-21 11:24 | disposition home or self-care (01) ==
LOC: SPVWC 11:23
PROVIDERS: ATTEND Internal Medicine Hematology & Oncology
DX: Z12.31 Encounter for screening mammogram for malignant neoplasm of breast (principal)

== ENCOUNTER 2019-11-27 08:51 | Outpatient (CLI) | payer MEDICARE, OTHER ==
--- NOTE | 2019-11-27 13:31 | PET Report ---
PET/CT HISTORY: C43.52. Restaging of melanoma. History of right breast cancer. TECHNIQUE: The patient's fasting blood glucose was 104. The patient weighed 159 lbs. The patient w as injected with 14.6 mCi of FDG in the left antecubital fossa at 0950 hours and imaging was started at 1035 hours. Whole body PET and CT images were obtained. All CT scans at this location are performe d using CT dose reduction for ALARA by means of automated exposure control. Images were reviewed on a workstation. COMPARISON: 09/04/2019 FINDINGS: BRAIN: [Physiologic FDG uptake] NECK: [Physiologic FDG uptake] CHEST WALL: [Physiologic FDG uptake]. Stable right mastectomy changes. MEDIASTINUM: [Physiologic FDG uptake]. The previously described waxing and waning mildly hypermetabo lic mediastinal lymph nodes have resolved. No hypermetabolic activity on today's exam. LUNGS: [Physiologic FDG uptake] HEPATOBILIARY: [Physiologic FDG uptake]. Liver uptake measures a max SUV of 4.4 as opposed to 5.0 on the previous exam. PANCREAS: [Physiologic FDG uptake SPLEEN: [Physiologic FDG uptake] KIDNEYS/BLADDER: [Physiologic FDG uptake] ADRENAL GLANDS: [Physiologic FDG uptake] GI/MESENTERY: [Physiologic FDG uptake] PELVIC VISCERA: [Physiologic FDG uptake] LYMPH NODES: [Physiologic FDG uptake] OSSEOUS STRUCTURES: [Physiologic FDG uptake] LOWER EXTREMITIES: Physiologic FDG uptake. Previously described uptake in the medial left thigh subcu taneous tissues has resolved. ADDITIONAL FINDINGS: [None] IMPRESSION: Negative PET CT. No evidence for residual disease or metastasis. Previously described mediastinal ly mph nodes and indeterminate uptake in the medial left thigh have resolved since the previous exam. Signer Name: Graham Arredondo Jr, MD Signed: 11/27/2019 1:26 PM Workstation Name: [id number]
== END 2019-11-27 08:52 | disposition home or self-care (01) ==
LOC: PET 08:51
PROVIDERS: ATTEND Internal Medicine Hematology & Oncology
DX: C43.52 Malignant melanoma of skin of breast (principal); I10 Essential (primary) hypertension; Z90.11 Acquired absence of right breast and nipple; Z79.899 Other long term (current) drug therapy
CPT/HCPCS: 78815; 82962; A9552

== ENCOUNTER 2020-03-04 08:51 | Outpatient (CLI) | payer MEDICARE, OTHER ==
--- NOTE | 2020-03-04 14:42 | PET Report ---
PET-CT SCAN INDICATION / CLINICAL INFORMATION: C43.52. History of melanoma and breast cancer. STAGING: Re-staging TECHNIQUE: Tumor imaging, positron emission tomography (PET) with concurrently acquired computed tomography (CT) for attenuation correction and anatomical localization; Whole Body - DOSE: 15.846 mCi F-18 FDG was administered IV per protocol in the left elbow. - GLUCOSE: Patient's blood glucose at that time was (mg/dL): 108 - UPTAKE TIME: PET scan performed approximately 60 minutes after radiotracer administration. - CT SCAN DESCRIPTION: No oral or IV contrast. All CT scans at this location are performed using CT d ose reduction for [employer] by means of automated exposure control. COMPARISON: PET/CT from 11/27/2019. FINDINGS: HEAD / NECK: No abnormal radiotracer uptake in the neck. No significant CT abnormality. CHEST: No abnormal radiotracer uptake in the chest. No significant CT abnormality. ABDOMEN / PELVIS: No abnormal radiotracer uptake in the abdomen. No significant CT abnormality. LOWER EXTREMITIES: No abnormal radiotracer uptake in the visualized lower extremities. No significant CT abnormality. SKELETAL STRUCTURES: No hypermetabolic bone lesions. No significant CT abnormality. ADDITIONAL FINDINGS: No additional significant findings. IMPRESSION: No FDG avid neoplastic disease. Signer Name: Justin Stephenson MD Signed: 03/04/2020 2:37 PM Workstation Name: [id number]
== END 2020-03-04 08:52 | disposition home or self-care (01) ==
LOC: PET 08:51
PROVIDERS: ATTEND Internal Medicine Hematology & Oncology
DX: C43.52 Malignant melanoma of skin of breast (principal); E78.00 Pure hypercholesterolemia, unspecified
CPT/HCPCS: 78815; 82962; A9552

== ENCOUNTER 2020-05-20 08:16 | Outpatient (CLI) | payer MEDICARE, OTHER ==
--- NOTE | 2020-05-20 12:18 | PET Report ---
PET/CT HISTORY: BREAST CA C43.52 C50.811. Melanoma. Restaging. TECHNIQUE: The patient's fasting blood glucose was 105. The patient weighed 150 to lbs. The patien jamil was injected with 14.2 mCi of FDG in the left antecubital fossa at 0846 hours and imaging was start ed at 0931 hours. The patient was imaged from the vertex of the skull through the feet. All CT scans at this location are performed using CT dose reduction for ALARA by means of automated exposure cont rol. Images were reviewed on a workstation. COMPARISON: 03/04/2020 FINDINGS: BRAIN: Physiologic FDG uptake. NECK: Physiologic FDG uptake. CHEST WALL: Physiologic FDG uptake. Stable right mastectomy changes. MEDIASTINUM: Physiologic FDG uptake. LUNGS: Physiologic FDG uptake. HEPATOBILIARY: Physiologic FDG uptake. PANCREAS: Physiologic FDG uptake. SPLEEN: Physiologic FDG uptake. KIDNEYS/BLADDER: Physiologic FDG uptake. ADRENAL GLANDS: Physiologic FDG uptake. GI/MESENTERY: Physiologic FDG uptake. PELVIC VISCERA: Physiologic FDG uptake. LYMPH NODES: Physiologic FDG uptake. OSSEOUS STRUCTURES: Physiologic FDG uptake. ADDITIONAL FINDINGS: None. IMPRESSION: Negative PET CT. Stable findings since 03/04/2020 exam. Signer Name: Graham Arredondo Jr, MD Signed: 05/20/2020 12:14 PM Workstation Name: [id number]
== END 2020-05-20 08:17 | disposition home or self-care (01) ==
LOC: PET 08:16
PROVIDERS: ATTEND Internal Medicine Hematology & Oncology
DX: C50.811 Malignant neoplasm of overlapping sites of right female breast (principal); C43.52 Malignant melanoma of skin of breast; Z90.11 Acquired absence of right breast and nipple
CPT/HCPCS: 78815; 82962; A9552

== ENCOUNTER 2020-09-13 21:27 | Inpatient (IN) | payer MEDICARE, OTHER ==
[2020-09-13] MEDS ORDERED: SODIUM CHLORIDE 0.9% 1000 ML 1,000 ML IV ONE (22:00)
[2020-09-13] MEDS ORDERED: HEPARIN 10,000 UNITS/10 ML VIAL IV ONE (22:01)
[2020-09-13] MEDS ORDERED: AMIODARONE 150 MG/3 ML INJ IV ONE ×2 (22:07→22:16)
--- NOTE | 2020-09-13 22:18 | Emergency Department Report ---
ED Chest Pain HPI - General Chief Complaint: Chest Pain Stated Complaint: CHEST PAIN Time Seen by Provider: 09/13/20 21:37 Source: patient, EMS Mode of arrival: Stretcher Limitations: No Limitations - History of Present Illness Initial Comments: pt was initially interviewed by my colleague Dr Benavides but he was had to go to an emergency on the floor. Abnormal EKG was presented to me while he was out of the ED therefore I assumed care of the patient and contacted cardiology emergently for code STEMI. 75-year-old female with a past medical history of melanoma of the right breast with right-sided mastectomy currently on daily oral chemotherapy and hy pertension presents to the hospital with chest pain for 1 hour prior to arrival. Patient is unable to qualify pain only states that it "hurts" it is constant. Pain is 8/10 in intensity. No aggravating alleviating factors. She denies shortness of breath, nausea, vomiting, or diaphoresis. Patient denies previous history of cardiac disease. She does not smoke cigarettes. She is compliant with her medications. No known previous history of PE/DVT. Patient received aspirin in route to the hospital - Related Data Home Medications Medication Instructions Recorded Confirmed Last Taken Bisoprolol/Hctz [Ziac 10-6.25] 1 each PO DAILY 07/30/14 08/05/14 08/05/14 08:30 Cyanocobalamin (Vitamin B-12) 1,000 mcg PO QDAY 07/30/14 08/05/14 08/04/14 09:00 [B-12] Pravastatin [Pravachol] 40 mg PO QDAY 07/30/14 08/05/14 08/05/14 08:30 amLODIPine 5 mg PO DAILY 07/30/14 08/05/14 08/05/14 08:30 hydroCHLOROthiazide 12.5 mg PO QDAY PRN 07/30/14 08/05/14 08/03/14 [Hydrochlorothiazide] lisinopriL [Lisinopril] 20 mg PO QDAY 07/30/14 08/05/14 08/05/14 08:30 Previous Rx's Medication Instructions Recorded Last Taken Type HYDROcodone/ACETAMINOPHEN [Lortab 1 each PO 6XD PRN #20 tablet 08/06/14 Unknown Rx 5-325 mg Tablet] cephALEXin [Keflex] 500 mg PO Q12HR #20 cap 07/10/17 Unknown Rx Allergies Allergy/AdvReac Type Severity Reaction Status Date / Time adhesive AdvReac BLISTERS, Verified 07/30/14 15:15 TURNS SKIN RED prochlorperazine edisylate AdvReac TONGUE Verified 07/30/14 15:14 [From Compazine] SWELLING [place] AdvReac WHELTS Uncoded 07/30/14 15:15 Heart Score - HEART Score History: Highly suspicious EKG: Significant ST-depression Age: > 65 Risk factors: 1-2 risk factors Troponin: < normal limit HEART Score: 7 ED Review of Systems ROS: Stated complaint: CHEST PAIN Other details as noted in HPI Comment: All other systems reviewed and negative ED Past Medical Hx - Past Medical History Previous Medical History?: Yes Hx Hypertension: Yes (FOR 18 YRS, DR. GALICIA- PCP) Hx Arthritis: Yes Hx Headaches / Migraines: Yes (MIGRAINES) Additional medical history: R breat melanoma - Surgical History Past Surgical History?: Yes Hx Breast Surgery: Yes (LEFT BREAST EXCISIONAL BX IN 1963, RIGHT BREAST & AXILLARY CORE BX 07-20-14) - Social History Smoking Status: Never Smoker Substance Use Type: None - Medications Home Medications: Home Medications Medication Instructions Recorded Confirmed Last Taken Type Bisoprolol/Hctz [Ziac 10-6.25] 1 each PO DAILY 07/30/14 08/05/14 08/05/14 08:30 History Cyanocobalamin (Vitamin B-12) 1,000 mcg PO QDAY 07/30/14 08/05/14 08/04/14 09:00 History [B-12] Pravastatin [Pravachol] 40 mg PO QDAY 07/30/14 08/05/14 08/05/14 08:30 History amLODIPine 5 mg PO DAILY 07/30/14 08/05/14 08/05/14 08:30 History hydroCHLOROthiazide 12.5 mg PO QDAY PRN 07/30/14 08/05/14 08/03/14 History [Hydrochlorothiazide] lisinopriL [Lisinopril] 20 mg PO QDAY 07/30/14 08/05/14 08/05/14 08:30 History HYDROcodone/ACETAMINOPHEN [Lortab 1 each PO 6XD PRN #20 tablet 08/06/14 Unknown Rx 5-325 mg Tablet] cephALEXin [Keflex] 500 mg PO Q12HR #20 cap 07/10/17 Unknown Rx ED Physical Exam - General Limitations: No Limitations - Other Other exam information: General: No acute distress Head: Atraumatic Eyes: normal appearance ENT: Moist mucous membranes Neck: Normal appearance, no midline tenderness Chest: Clear to auscultation bilaterally CV: Regular rate and rhythm Abdomen: Soft, normal bowel sounds, nontender, nondistended, no rebound or guarding Back: Normal inspection Extremity: Normal inspection, full range of motion, no calf tenderness or leg edema Neuro: Alert O x 3, no facial asymmetry, speech clear, no gross motor sensory deficit Psych: Appropriate behavior Skin: No rash ED Course Vital Signs 09/13/20 09/13/20 09/13/20 21:35 21:40 21:46 Pulse Rate 61 59 L Respiratory 14 19 Rate Blood Pressure 135/61 Blood Pressure 135/55 [Left] O2 Sat by Pulse 94 93 92 Oximetry 09/13/20 09/13/20 09/13/20 22:00 22:16 22:30 Pulse Rate 74 69 68 Respiratory 12 17 14 Rate Blood Pressure 135/61 160/58 141/67 Blood Pressure [Left] O2 Sat by Pulse Oximetry - Reevaluation(s) Reevaluation #1: 09/13/20 21:58 While I was at the bedside patient became unresponsive and had V. tach on the monitor. Patient received defibrillation at 200 J with initial sinus pause and then returned to sinus rhythm with gradual increase in responsiveness. Chest compressions were not performed. - Consultations Consultation #1: 09/13/20 21:58 EKG shared and discussed with on-call material control associate for intervention Dr. Junior Marte who agrees that patient's findings represent ST elevation GA and therefore Resolution Specialist activated 09/13/20 22:06 Case was discussed with on-call material control associate Dr. Marte who recommends amiodarone bolus of 150 followed by drip for V. tach prophylaxis. Also agrees with heparin bolus but does not recommend drip at this time. SAADIA score - Saadia Score Age > 65: (1) Yes Aspirin use within the Past 7 Days: (0) No 3 or more CAD Risk Factors: (0) No 2 or more Angina events in past 24 hrs: (0) No Known CAD with more than 50% Stenosis: (0) No ST Deviation Greater than 0.5mm: (1) Yes ED Medical Decision Making - Lab Data Result diagrams: 09/13/20 21:55 09/13/20 21:55 Lab Results 09/13/20 09/13/20 09/13/20 Range/Units 21:55 21:55 21:55 WBC 6.1 (4.5-11.0) K/mm3 RBC 4.88 (3.65-5.03) M/mm3 Hgb 13.1 (10.1-14.3) gm/dl Hct 39.7 (30.3-42.9) % MCV 81 (79-97) fl MCH 27 L (28-32) pg MCHC 33 (30-34) % RDW 15.3 H (13.2-15.2) % Plt Count 145 (140-440) K/mm3 Lymph % (Auto) 16.2 (13.4-35.0) % [place] % (Auto) 10.9 H (0.0-7.3) % Eos % (Auto) 1.3 (0.0-4.3) % Baso % (Auto) 0.3 (0.0-1.8) % Lymph # (Auto) 1.0 L (1.2-5.4) K/mm3 [place] # (Auto) 0.7 (0.0-0.8) K/mm3 Eos # (Auto) 0.1 (0.0-0.4) K/mm3 Baso # (Auto) 0.0 (0.0-0.1) K/mm3 Seg Neutrophils % 71.3 H (40.0-70.0) % Seg Neutrophils # 4.4 (1.8-7.7) K/mm3 PT 13.1 (12.2-14.9) Sec. INR 0.97 (0.87-1.13) APTT 29.7 (24.2-36.6) Sec. D-Dimer 449.68 H (0-234) ng/mlDDU Sodium 140 (137-145) mmol/L Potassium 3.3 L (3.6-5.0) mmol/L Chloride 103.1 (98-107) mmol/L Carbon Dioxide 20 L (22-30) mmol/L Anion Gap 20 mmol/L BUN 29 H (7-17) mg/dL Creatinine 0.9 (0.6-1.2) mg/dL Estimated GFR > 60 ml/min BUN/Creatinine Ratio 32 % Glucose 147 H (65-100) mg/dL Calcium 9.2 (8.4-10.2) mg/dL Total Bilirubin 0.30 (0.1-1.2) mg/dL AST 15 (5-40) units/L ALT 7 (7-56) units/L Alkaline Phosphatase 97 (35-129) units/L Troponin T < 0.010 (0.00-0.029) ng/mL Total Protein 6.1 L (6.3-8.2) g/dL Albumin 3.7 L (3.9-5) g/dL Albumin/Globulin Ratio 1.5 % - EKG Data -: EKG Interpreted by Me EKG shows normal: sinus rhythm, ST-T waves (Acute anterolateral infarct) - EKG Data When compared to previous EKG there are: previous EKG unavailable 09/13/20 22:21 Repeat postarrest EKG consistently shows acute anterolateral infarct with multiple PVCs - Radiology Data Radiology results: report reviewed Chest single view INDICATION: Dyspnea IMPRESSION: Low lung volumes noted. There is mixed interstitial and airspace disease primarily involving the lower lungs. No large pleural effusion or pneumothorax. - Medical Decision Making 2 IV lines placed in the left arm since patient had a right-sided mastectomy and cannot receive IV sticks or blood draw in the arm Patient presents to the hospital chest pain 1 hour prior to arrival he received aspirin via EMS EKG revealed anterolateral ST elevation GA. Resolution Specialist was activated. Patient did have subsequent unstable V. tach with alteration in mental status but persistent breathing. She received defibrillation at 200 J for unstable V. tach with subsequent return to sinus rhythm and return in baseline mental status. Amiodarone bolus followed by drip provided. Patient also received a heparin bolus in preparation for transfer to [facility]. Nitroglycerin drip ordered for pain control. Critical Care Time: Yes Critical care time in (mins) excluding proc time.: 35 Critical care attestation.: If time is entered above; I have spent that time in minutes in the direct care of this critically ill patient, excluding procedure time. ED Disposition Clinical Impression: STEMI (ST elevation myocardial infarction), V-tach Disposition: OP ADMIT IP TO THIS HOSP Is pt being admited?: Yes Condition: Stable Time of Disposition: 22:35 (Dr Patricia/hosp)
[2020-09-13] MEDS ORDERED: ONDANSETRON 4 MG/2 ML INJ ONE (22:19)
[2020-09-13] MEDS ORDERED: ONDANSETRON 4 MG/2 ML INJ IV ONE (22:20)
[2020-09-13] MEDS ORDERED: AMIODARONE 150 MG in DEXTROSE 5% IN WATER 97 ML IV ONE (22:20)
[2020-09-13] MEDS ORDERED: NITROGLYCERIN DRIP 50 MG/250 ML BOTTLE IV ONE (22:26)
[2020-09-13] MEDS ORDERED: HEPARIN/NS 5000 UNIT/500ML 1,000 ML IR ONE (22:32)
[2020-09-13] MEDS ORDERED: LIDOCAINE (2%) 20 MG/1 ML VIAL 20 ML MDV INFILTRATI ONE (22:33)
[2020-09-13] MEDS ORDERED: NITROGLYCERIN SYRINGE 3 ML ONE (22:33)
[2020-09-13] MEDS ORDERED: VERAPAMIL 5 MG/2 ML INJ ONE (22:33)
[2020-09-13] MEDS ORDERED: ATROPINE 0.1% (1 MG/10 ML) CARDIAC SYRINGE ONE (22:34)
[2020-09-13] MEDS ORDERED: LIDOCAINE PF 100 MG/5 ML (CARDIAC SYRINGE) IV ONE (22:34)
[2020-09-13] MEDS ORDERED: PHENYLEPHRINE/NS 1,000 MCG/10 ML SYRINGE (OR USE) IV ONE (22:34)
[2020-09-13] MEDS ORDERED: EPINEPHrine 1 MG/10 ML SYRINGE ONE (22:34)
[2020-09-13] MEDS ORDERED: SODIUM CHLORIDE 0.9% 1000 ML 1,000 ML ONE (22:35)
[2020-09-13 22:37] LABS: Alanine Aminotransferase 7 units/L (7-56); Albumin 3.7 g/dL (3.9-5); BUN/Creatinine Ratio 32; Blood Urea Nitrogen 29 mg/dL (7-17); Calcium 9.2 mg/dL (8.4-10.2); Hemolysis Index 9
[2020-09-13 22:51] LABS: Basophils % (Auto) 0.3 % (0.0-1.8); Eosinophils # (Auto) 0.1 K/mm3 (0.0-0.4); Eosinophils % (Auto) 1.3 % (0.0-4.3); Hematocrit 39.7 % (30.3-42.9); Hemoglobin 13.1 gm/dl (10.1-14.3); Lymphocytes % (Auto) 16.2 % (13.4-35.0); Mean Corpuscular HGB Conc 33 % (30-34); Mean Corpuscular Volume 81 fl (79-97); Monocytes # (Auto) 0.7 K/mm3 (0.0-0.8); Monocytes % (Auto) 10.9 % (0.0-7.3); Platelet Count 145 K/mm3 (140-440); Red Blood Count 4.88 M/mm3 (3.65-5.03); Red Cell Distribution Width 15.3 % (13.2-15.2)
[2020-09-13] MEDS: fentaNYL 100 MCG/2 ML INJ ONE ×2 (22:55→23:20)
[2020-09-13] MEDS: MIDAZOLAM 2 MG/2 ML INJ ONE ×2 (22:55→23:20)
[2020-09-13] MEDS: HEPARIN 10,000 UNITS/10 ML VIAL ONE ×3 (22:56→23:45)
--- NOTE | 2020-09-13 22:57 | XRay Report ---
Chest single view INDICATION: Dyspnea IMPRESSION: Low lung volumes noted. There is mixed interstitial and airspace disease primarily involv ing the lower lungs. No large pleural effusion or pneumothorax. Signer Name: Arturo Deutsch MD Signed: 09/13/2020 10:53 PM Workstation Name: [id number]
[2020-09-13] MEDS ORDERED: AMIODARONE 900 MG in DEXTROSE 5% IN WATER 482 ML IV SCH (23:00)
[2020-09-13 23:01] LABS: INR 0.97 (0.87-1.13)
[2020-09-13 23:02] LABS: Partial Thromboplastin Time 29.7 Sec. (24.2-36.6)
[2020-09-13] MEDS ORDERED: HEPARIN/NS 5000 UNIT/500ML 500 ML IR ONE (23:05)
[2020-09-13] MEDS ORDERED: TICAGRELOR 90 MG TAB ONE (23:36)
[2020-09-13] MEDS ORDERED: SODIUM CHLORIDE 0.9% 1000 ML 1,000 ML IV SCH (23:45)
[2020-09-13] MEDS ORDERED: HYDROcodone/ACETAMINOPHEN 5-325 MG TAB PO PRN (23:47)
--- NOTE | 2020-09-13 23:58 | Consultation ---
History of Present Illness Consult date: 09/13/20 Requesting physician: CAMELIA HAWKINS Consult reason: other (STEMI) History of present illness: Patient is a 75-year-old female with a past medical history of melanoma of the right breast with right-sided mastectomy currently on daily oral chemotherapy and hypertension presents to the hospital with chest pain for 1 hour prior to arrival. Patient reports that she was in her sofa relaxing when she had a sudden onset of chest pain associated with significant shortness of breath and diaphoresis. In the ER patient was noted to have anterior ST elevation with anterior Q waves. In the interim patient also developed ventricular tachycardia and spontaneously converted to sinus rhythm. Patient was emergently taken to [facility] and had PCI of 100% LAD. Patient is being admitted post DE. She currently reports that her chest pain is much better. Past History Past Medical History: hypertension, hyperlipidemia Past Surgical History: mastectomy Social history: no significant social history Family history: no significant family history Medications and Allergies Allergies Allergy/AdvReac Type Severity Reaction Status Date / Time adhesive AdvReac BLISTERS, Verified 07/30/14 15:15 TURNS SKIN RED prochlorperazine edisylate AdvReac TONGUE Verified 07/30/14 15:14 [From Compazine] SWE[place]ING [place] AdvReac WHELTS Uncoded 07/30/14 15:15 Home Medications Medication Instructions Recorded Confirmed Last Taken Type Bisoprolol/Hctz [Ziac 10-6.25] 1 each PO DAILY 07/30/14 08/05/14 08/05/14 08:30 History Cyanocobalamin (Vitamin B-12) 1,000 mcg PO QDAY 07/30/14 08/05/14 08/04/14 09:00 History [B-12] Pravastatin [Pravachol] 40 mg PO QDAY 07/30/14 08/05/14 08/05/14 08:30 History amLODIPine 5 mg PO DAILY 07/30/14 08/05/14 08/05/14 08:30 History hydroCHLOROthiazide 12.5 mg PO QDAY PRN 07/30/14 08/05/14 08/03/14 History [Hydrochlorothiazide] lisinopriL [Lisinopril] 20 mg PO QDAY 07/30/14 08/05/14 08/05/14 08:30 History HYDROcodone/ACETAMINOPHEN [Lortab 1 each PO 6XD PRN #20 tablet 08/06/14 Unknown Rx 5-325 mg Tablet] cephALEXin [Keflex] 500 mg PO Q12HR #20 cap 07/10/17 Unknown Rx Active Meds: Active Medications Hydrocodone Bitart/Acetaminophen ([place] 5/325) 1 each PO Q6H PRN PRN Reason: Pain, Moderate (4-6) Aspirin (Baby Aspirin) 81 mg PO QDAY BALDO Atorvastatin Calcium (Lipitor) 80 mg PO QHS BALDO Carvedilol (Coreg) 3.125 mg PO BID BALDO Sodium Chloride (Nacl 0.9% 1000 Ml) 1,000 mls @ 42 mls/hr IV ONCE ONE Stop: 09/14/20 21:48 Last Admin: 09/13/20 22:18 Dose: 42 mls/hr Documented by: Amiodarone HCl 900 mg/ (Dextrose) 500 mls @ 33.333 mls/hr IV DIRECT BALDO; Protocol Last Admin: 09/13/20 22:53 Dose: 16.66 mls Documented by: Nitroglycerin/Dextrose (Tridil Drip 50mg/250ml) 50 mg in 250 mls @ 3 mls/hr IV TITR ONE; Protocol Stop: 09/17/20 09:45 Last Admin: 09/13/20 22:31 Dose: 10 mcg/min, 3 mls/hr Documented by: Sodium Chloride (Nacl 0.9% 1000 Ml) 1,000 mls @ 75 mls/hr IV DIRECT BALDO Pantoprazole Sodium (Protonix) 40 mg PO QDAC BALDO Ticagrelor (Brilinta) 90 mg PO BID BALDO Review of Systems All systems: negative (As mentioned in the H&P) Physical Examination Vital Signs Pulse Resp BP Pulse Ox 61 14 135/55 94 09/13/20 21:35 09/13/20 21:35 09/13/20 21:35 09/13/20 21:35 Narrative exam: Moderately distressed on presentation. HEENT: Positive: Normocephaly Neck: Positive: neck supple Cardiac: Positive: Reg Rate and Rhythm Lungs: Positive: Normal Exam, clear to auscultation Neuro: Positive: Grossly Intact Abdomen: Positive: Unremarkable Female genitourinary: deferred Extremities: Present: normal Results 09/13/20 21:55 09/13/20 21:55 Cardiac Enzymes 09/13/20 Range/Units 21:55 AST 15 (5-40) units/L Coagulation 09/13/20 Range/Units 21:55 PT 13.1 (12.2-14.9) Sec. INR 0.97 (0.87-1.13) APTT 29.7 (24.2-36.6) Sec. CBC 09/13/20 Range/Units 21:55 WBC 6.1 (4.5-11.0) K/mm3 RBC 4.88 (3.65-5.03) M/mm3 Hgb 13.1 (10.1-14.3) gm/dl Hct 39.7 (30.3-42.9) % Plt Count 145 (140-440) K/mm3 Lymph # (Auto) 1.0 L (1.2-5.4) K/mm3 [place] # (Auto) 0.7 (0.0-0.8) K/mm3 Eos # (Auto) 0.1 (0.0-0.4) K/mm3 Baso # (Auto) 0.0 (0.0-0.1) K/mm3 Comprehensive Metabolic Panel 09/13/20 Range/Units 21:55 Sodium 140 (137-145) mmol/L Potassium 3.3 L (3.6-5.0) mmol/L Chloride 103.1 (98-107) mmol/L Carbon Dioxide 20 L (22-30) mmol/L BUN 29 H (7-17) mg/dL Creatinine 0.9 (0.6-1.2) mg/dL Glucose 147 H (65-100) mg/dL Calcium 9.2 (8.4-10.2) mg/dL AST 15 (5-40) units/L ALT 7 (7-56) units/L Alkaline Phosphatase 97 (35-129) units/L Total Protein 6.1 L (6.3-8.2) g/dL Albumin 3.7 L (3.9-5) g/dL EKG interpretations - Telemetry EKG Rhythm: Sinus Rhythm (Anterior ST elevation DE with anterior Q waves) Assessment and Plan Impression 1. Acute anterior ST elevation DE 2. Status post primary PCI of 100% occluded LAD 3. Severe CAD with 100% occlusion of the calcified RCA. 4. Status post ventricular tachycardia prior to PCI currently stable on amiodarone 5. Ischemic cardiomyopathy 6. Hypertension 7. Hyperlipidemia 8. Hypokalemia 9. Melanoma status post surgery and maintenance chemotherapy 10. Mastectomy right breast. Plan Aspirin for life Dual antiplatelet therapy for 1 year peripherally more Continue IV amiodarone drip Wean nitroglycerin drip as tolerated Optimize beta-sotero High intensity statin PPIs 2D echo Replete potassium Check magnesium Medical management of BAKERY ASSOCIATE of the RCA
--- NOTE | 2020-09-14 00:30 | Cardiac Catherization Report ---
CORONARY ANGIOGRAM REPORT PROCEDURES PERFORMED: 1. Selective left and right coronary angiogram. 2. Left ventriculogram. 3. Successful percutaneous intervention of 100% occlusion of the LAD in the setting of acute anterior ST elevation PA and ventricular tachycardia. TAX MANAGER: Eugenio Marte MD INDICATION: Acute anterior wall ST elevation PA. PROCEDURE DETAILS: 1. The patient was prepped and draped in a sterile fashion after informed consent. 2. The right groin was anesthetized using local Lidocaine infiltration. 3. The right radial artery was entered using the Seldinger technique, followed by the placement of a 6-Turkish sheath. 4. Selective left and right coronary angiography was performed using 6-Turkish Bar catheters. Angiograms were done in multiple projections. 5. Selective left ventricular angiography was done using a 6-Turkish pigtail catheter. Left ventricular angiography was performed in the right anterior oblique projection. 6. The catheters were withdrawn, the sheath removed, and hemostasis was achieved. 7. The patient was transferred to the post cardiac catheterization unit in stable condition. There were no complications, equipment malfunction, or technical difficulties. After reviewing the films, it was decided to proceed with a PCI of the LAD. In view of the acute ST-elevation myocardial infarction. Intravenous heparin was used to maintain therapeutic ACT. An XB LAD guide was used to engage the left main coronary artery. We had difficulty engaging the guide. Initially, we tried an XB 3.5 guidewire, but however, because of the tortuous aorta with some difficulty in the 2nd XB LAD guide and was able to be engaged in the left main. A BMW wire was used to cross the lesion in the LAD again with great difficulty as there was significant calcium. After serial predilatation, a 2.75 x 38 mm Resolute drug-eluting stent was deployed across the stenosis. This was again serially postdilated with a 2.0 and then a 3.0 balloon to high atmospheres. Good results were obtained. However upper sioux vessel had [id number] calcification and diffusely diseased. There was, however, SAADIA 3 flow and the patient's symptoms significantly improved at the end of the procedure. The patient was given 180 mg of Brilinta. Radial sheath removed, and TR band applied. FINDINGS: HEMODYNAMICS: AO 119/64, LV is 140/28. LVEDP is 28. Left ventriculogram was suboptimal. However, anterior hypokinesis and apical dyskinesis noted. The EF around 35%-40%. ANGIOGRAM DETAILS: 1. Left main has a distal eccentric 30%-40% calcified stenosis. 2. Left anterior descending is a heavily calcified vessel that is 100% occluded proximally. Post-PCI, the distal vessel had [id number] calcification; however, with SAADIA 3 flow. 3. The circumflex is a large dominant, moderately calcified vessel. The circumflex gives off grade 2 contralateral collaterals that feed the entire RCA. 4. The right coronary artery is heavily calcified and occluded in the midportion. 5. Culprit lesion is proximal LAD. 6. Preprocedure stenosis is 100%. 7. Postprocedure stenosis is 0%. 8. Postprocedure SAADIA flow is 3. IMPRESSION: 1. Status post successful percutaneous intervention of the heavily calcified LAD with the deployment of 2.75 x 38 mm Resolute drug-eluting stent. 2. Chronic total occlusion of the RCA with grade 2 contralateral collaterals filling most of the distal RCA and the PDA. 3. Ischemic cardiomyopathy, EF around 35%-40% with anterior hypokinesis and apical dyskinesis. PLAN: 1. Aspirin for life. 2. Brilinta for 1 year, preferably more. 3. Routine adjuvant pharmacotherapy post-PCI. 4. Continue IV amiodarone. JOB# [id number] JESUS/NTS
[2020-09-14] MEDS: POTASSIUM CHLORIDE 10 MEQ 10 MEQ/100 ML BAG IV SCH ×4 (01:37→06:03)
[2020-09-14 05:02] LABS: Hematocrit 40.2 % (30.3-42.9); Hemoglobin 12.9 gm/dl (10.1-14.3); Mean Corpuscular HGB Conc 32 % (30-34); Mean Corpuscular Volume 83 fl (79-97); Red Blood Count 4.83 M/mm3 (3.65-5.03); Red Cell Distribution Width 15.6 % (13.2-15.2)
[2020-09-14 05:05] LABS: Mean Platelet Volume 8.4 fl (6-12); Platelet Count 98 K/mm3 (140-440)
[2020-09-14 05:06] LABS: Basophils % (Auto) 0.1 % (0.0-1.8); Lymphocytes # (Auto) 0.4 K/mm3 (1.2-5.4); Lymphocytes % (Auto) 6.9 % (13.4-35.0); Monocytes # (Auto) 0.3 K/mm3 (0.0-0.8); Monocytes % (Auto) 5.6 % (0.0-7.3)
[2020-09-14 05:16] LABS: BUN/Creatinine Ratio 30; Blood Urea Nitrogen 27 mg/dL (7-17); Calcium 9.2 mg/dL (8.4-10.2); Hemolysis Index 144
[2020-09-14 05:56] LABS: Chol/HDL Ratio 3.81 %; HDL Cholesterol 59 mg/dL (40-59); LDL Cholesterol,Direct 161 mg/dL (50-130)
[2020-09-14 06:06] LABS: Creatine Kinase MB > 300.0 ng/mL (0.0-4.0)
--- NOTE | 2020-09-14 06:56 | History and Physical Report ---
History of Present Illness Date of examination: 09/13/20 Date of admission: 09/13/20 22:36 Chief complaint: chest pain History of present illness: History of presenting illness, patient is a 75-year-old female who was brought into the emergency room as a code STEMI after she started having sharp chest pain at home which she said started suddenly and was associated with shortness of breath, diaphoresis, nausea but no vomiting. There was no history of fever or chills, and there was no history of cough or body aches. Past History Past Medical History: hypertension, hyperlipidemia Past Surgical History: mastectomy Social history: no significant social history Family history: CAD Medications and Allergies Allergies Allergy/AdvReac Type Severity Reaction Status Date / Time adhesive AdvReac BLISTERS, Verified 07/30/14 15:15 TURNS SKIN RED prochlorperazine edisylate AdvReac TONGUE Verified 07/30/14 15:14 [From Compazine] [place]WE[place] AdvReac WHELTS Uncoded 07/30/14 15:15 Home Medications Medication Instructions Recorded Confirmed Last Taken Type Bisoprolol/Hctz [Ziac 10-6.25] 1 each PO DAILY 07/30/14 08/05/14 08/05/14 08:30 History Cyanocobalamin (Vitamin B-12) 1,000 mcg PO QDAY 07/30/14 08/05/14 08/04/14 09:00 History [B-12] Pravastatin [Pravachol] 40 mg PO QDAY 07/30/14 08/05/14 08/05/14 08:30 History amLODIPine 5 mg PO DAILY 07/30/14 08/05/14 08/05/14 08:30 History hydroCHLOROthiazide 12.5 mg PO QDAY PRN 07/30/14 08/05/14 08/03/14 History [Hydrochlorothiazide] lisinopriL [Lisinopril] 20 mg PO QDAY 07/30/14 08/05/14 08/05/14 08:30 History HYDROcodone/ACETAMINOPHEN [Lortab 1 each PO 6XD PRN #20 tablet 08/06/14 Unknown Rx 5-325 mg Tablet] cephALEXin [Keflex] 500 mg PO Q12HR #20 cap 07/10/17 Unknown Rx Active Meds: Active Medications Hydrocodone Bitart/Acetaminophen ([place] 5/325) 1 each PO Q6H PRN PRN Reason: Pain, Moderate (4-6) Aspirin (Baby Aspirin) 81 mg PO QDAY BALDO Atorvastatin Calcium (Lipitor) 80 mg PO QHS BALDO Carvedilol (Coreg) 3.125 mg PO BID BALDO Sodium Chloride (Nacl 0.9% 1000 Ml) 1,000 mls @ 42 mls/hr IV ONCE ONE Stop: 09/14/20 21:48 Last Admin: 09/13/20 22:18 Dose: 42 mls/hr Documented by: Amiodarone HCl 900 mg/ (Dextrose) 500 mls @ 16.667 mls/hr IV DIRECT BALDO; Protocol Last Titration: 09/14/20 01:55 Dose: 0.5 mg/min, 16.667 mls/hr Documented by: Nitroglycerin/Dextrose (Tridil Drip 50mg/250ml) 50 mg in 250 mls @ 1.5 mls/hr IV TITR ONE; Protocol Stop: 09/20/20 21:05 Last Titration: 09/14/20 01:54 Dose: 5 mcg/min, 1.5 mls/hr Documented by: Sodium Chloride (Nacl 0.9% 1000 Ml) 1,000 mls @ 50 mls/hr IV DIRECT BALDO Magnesium Oxide (Mag-Ox) 400 mg PO QDAY BALDO Pantoprazole Sodium (Protonix) 40 mg PO QDAC BALDO Potassium Chloride (K-Dur) 20 meq PO QDAY BALDO Ticagrelor (Brilinta) 90 mg PO BID BALDO Review of Systems Constitutional: sweats, weakness, no weight loss, no weight gain, no fever, no chills Eyes: bilateral: other (No bilateral eye symptoms) Breasts: deferred Cardiovascular: chest pain, shortness of breath, no palpitations, no syncope, no lightheadedness Respiratory: shortness of breath, dyspnea on exertion, no cough, no excessive sputum, no hemoptysis Gastrointestinal: nausea, no abdominal pain, no vomiting, no diarrhea, no constipation, no change in bowel habits, no hematemesis Genitourinary Female: no pelvic pain, no flank pain, no Menstruation: postmenopausal Rectal: no pain Integumentary: no rash, no pruritis, no redness, no sores, no wounds, no jaundice Neurological: no paralysis, no weakness, no parathesias, no numbness, no tingling, no seizures, no syncope, no vertigo, no headaches Psychiatric: no anxiety, no depression Endocrine: no polydipsia, no polyuria, no nocturia Hematologic/Lymphatic: no easy bruising, no easy bleeding Exam - Constitutional Vitals: Temp Pulse Resp BP Pulse Ox 98.4 F 67 24 126/67 87 09/14/20 03:48 09/14/20 06:10 09/14/20 06:10 09/14/20 06:10 09/14/20 06:10 General appearance: Present: mild distress - EENT Eyes: Present: PERRL, EOM intact ENT: hearing intact, clear oral mucosa - Neck Neck: Present: supple, normal ROM - Respiratory Respiratory effort: normal - Cardiovascular Rhythm: regular Heart Sounds: Present: S1 & S2. Absent: gallop, systolic murmur, diastolic murmur, rub, click - Extremities Extremities: no ischemia, No edema Peripheral Pulses: within normal limits - Abdominal General gastrointestinal: Present: soft, non-tender, non-distended. Absent: tender, distended, rigid, hepatomegaly, splenomegaly - Rectal Rectal Exam: deferred - Integumentary Integumentary: Present: clear, warm, dry - Musculoskeletal Musculoskeletal: strength equal bilaterally - Psychiatric Psychiatric: appropriate mood/affect HEART Score - HEART Score EKG: Significant ST-depression Age: > 65 Risk factors: 1-2 risk factors Troponin: Troponin T 9.840 ng/mL (0.00-0.029) H* D 09/14/20 04:00 Troponin: < normal limit - Critical Actions Critical Actions: 0-3 pts:0.9-1.7%risk of adverse cardiac event.Candidate for discharge Results - Labs CBC & Chem 7: 09/14/20 04:00 09/14/20 04:00 Labs: Laboratory Last Values WBC 5.8 K/mm3 (4.5-11.0) 09/14/20 04:00 RBC 4.83 M/mm3 (3.65-5.03) 09/14/20 04:00 Hgb 12.9 gm/dl (10.1-14.3) 09/14/20 04:00 Hct 40.2 % (30.3-42.9) 09/14/20 04:00 MCV 83 fl (79-97) 09/14/20 04:00 MCH 27 pg (28-32) L 09/14/20 04:00 MCHC 32 % (30-34) 09/14/20 04:00 RDW 15.6 % (13.2-15.2) H 09/14/20 04:00 Plt Count 98 K/mm3 (140-440) L 09/14/20 04:00 Lymph % (Auto) 6.9 % (13.4-35.0) L 09/14/20 04:00 [place] % (Auto) 5.6 % (0.0-7.3) 09/14/20 04:00 Eos % (Auto) 0.0 % (0.0-4.3) 09/14/20 04:00 Baso % (Auto) 0.1 % (0.0-1.8) 09/14/20 04:00 Lymph # (Auto) 0.4 K/mm3 (1.2-5.4) L 09/14/20 04:00 [place] # (Auto) 0.3 K/mm3 (0.0-0.8) 09/14/20 04:00 Eos # (Auto) 0.0 K/mm3 (0.0-0.4) 09/14/20 04:00 Baso # (Auto) Risk And Compliance Analytics Director 09/14/20 04:00 Seg Neutrophils % 87.4 % (40.0-70.0) H 09/14/20 04:00 Seg Neutrophils # 5.1 K/mm3 (1.8-7.7) 09/14/20 04:00 PT 13.1 Sec. (12.2-14.9) 09/13/20 21:55 INR 0.97 (0.87-1.13) 09/13/20 21:55 APTT 29.7 Sec. (24.2-36.6) 09/13/20 21:55 D-Dimer 449.68 ng/mlDDU (0-234) H 09/13/20 21:55 Sodium 137 mmol/L (137-145) 09/14/20 04:00 Potassium 4.7 mmol/L (3.6-5.0) D 09/14/20 04:00 Chloride 100.8 mmol/L (98-107) 09/14/20 04:00 Carbon Dioxide 17 mmol/L (22-30) L 09/14/20 04:00 Anion Gap 24 mmol/L 09/14/20 04:00 BUN 27 mg/dL (7-17) H 09/14/20 04:00 Creatinine 0.9 mg/dL (0.6-1.2) 09/14/20 04:00 Estimated GFR > 60 ml/min 09/14/20 04:00 BUN/Creatinine Ratio 30 % 09/14/20 04:00 Glucose 211 mg/dL (65-100) H 09/14/20 04:00 Calcium 9.2 mg/dL (8.4-10.2) 09/14/20 04:00 Total Bilirubin 0.30 mg/dL (0.1-1.2) 09/13/20 21:55 AST 15 units/L (5-40) 09/13/20 21:55 ALT 7 units/L (7-56) 09/13/20 21:55 Alkaline Phosphatase 97 units/L (35-129) 09/13/20 21:55 Total Creatine Kinase 5507 units/L (30-135) H 09/14/20 04:00 CK-MB (CK-2) > 300.0 ng/mL (0.0-4.0) H 09/14/20 04:00 CK-MB (CK-2) Rel Index 5.4 (0-4) H 09/14/20 04:00 Troponin T 9.840 ng/mL (0.00-0.029) H* D 09/14/20 04:00 Total Protein 6.1 g/dL (6.3-8.2) L 09/13/20 21:55 Albumin 3.7 g/dL (3.9-5) L 09/13/20 21:55 Albumin/Globulin Ratio 1.5 % 09/13/20 21:55 Triglycerides 92 mg/dL (2-149) 09/14/20 04:00 Cholesterol 225 mg/dL (50-199) H 09/14/20 04:00 LDL Cholesterol Direct 161 mg/dL (50-130) H 09/14/20 04:00 HDL Cholesterol 59 mg/dL (40-59) 09/14/20 04:00 Cholesterol/HDL Ratio 3.81 % 09/14/20 04:00 Blood Type A POSITIVE 09/13/20 22:30 Antibody Screen Negative 09/13/20 22:30 Fonseca/IV: Voiding Method External Female Catheter IV Catheter Type [Left Peripheral IV Antecubital] IV Catheter Type [Left Hand] Peripheral IV Assessment and Plan - Patient Problems (1) STEMI (ST elevation myocardial infarction) Current Visit: Yes Status: Acute Plan to address problem: 1. FOLLOW LINK TRAINER MAINTENANCE WORKER TREATMENT PLAN (2) Hyperglycemia Current Visit: Yes Status: Acute Plan to address problem: 1. BMP 2. WILL MONITOR BLOOD GLUCOSE 3. HEMOGLOBIN A1C
[2020-09-14] MEDS ORDERED: PANTOPRAZOLE 40 MG TAB PO SCH (07:30)
[2020-09-14 08:03] LABS: BUN/Creatinine Ratio 31; Blood Urea Nitrogen 25 mg/dL (7-17); Calcium 9.3 mg/dL (8.4-10.2); Hemolysis Index 51
--- NOTE | 2020-09-14 09:04 | XRay Report ---
CHEST 1 VIEW INDICATION / CLINICAL INFORMATION: post pci. COMPARISON: 09/13/2020 FINDINGS: SUPPORT DEVICES: None. HEART / MEDIASTINUM: Stable. LUNGS / PLEURA: Persistently low lung volumes with patchy interstitial and consolidative change sligh tly worse when compared to the most recent prior examination. No pneumothorax. ADDITIONAL FINDINGS: No significant additional findings. IMPRESSION: 1. Mild progression of interstitial and airspace disease when compared to prior radiograph. Signer Name: Lucio Rueda MD Signed: 09/14/2020 9:00 AM Workstation Name: [id number]
--- NOTE | 2020-09-14 09:17 | Progress Note ---
Assessment and Plan Assessment and plan: --Acute anterior ST elevation NC; Status post left heart cath, status post PCI to LAD Continue dual antiplatelet therapy, and current cardiac medications --History of ventricular tachycardia prior to PCI; Continue amiodarone, supportive care --Ischemic cardiomyopathy; EF 35 to 40% Continue current cardiac medications, antifailure medications Input output monitoring, cardiology following --Hypertension; moderate control Continue current antihypertensives and as needed medications --Dyslipidemia; low-cholesterol diet, statin --History of melanoma status post surgery on maintenance chemotherapy Supportive care --DVT prophylaxis; SCDs Closely monitor the patient and adjust the management as needed Follow cardiology recommendations for today Plan of care reviewed with the patient and her nurse History Interval history: I have seen and examined the patient in the morning at the bedside Patient's chart and medications reviewed Patient with ST elevation NC status post heart cath, status post PCI to LAD Patient is alert and awake, complains of very mild intermittent chest pain No chest pain at the time of my evaluation Complains of vague back pain secondary to uncomfortable bed Denies nausea vomiting Vital signs reviewed Hospitalist Physical - Constitutional Vitals: Temp Pulse Resp BP Pulse Ox 97.5 F L 67 24 126/67 87 09/14/20 08:00 09/14/20 06:10 09/14/20 06:10 09/14/20 06:10 09/14/20 06:10 General appearance: Present: no acute distress, well-nourished - EENT Eyes: Present: PERRL, EOM intact - Neck Neck: Present: supple, normal ROM - Respiratory Respiratory effort: normal Respiratory: bilateral: diminished, rales, negative: rhonchi, wheezing - Cardiovascular Rhythm: regular Heart Sounds: Present: S1 & S2 - Extremities Extremities: no ischemia, No edema - Abdominal General gastrointestinal: soft, non-tender, non-distended, normal bowel sounds - Integumentary Integumentary: Present: clear, warm - Psychiatric Psychiatric: appropriate mood/affect, cooperative - Neurologic Neurologic: moves all extremities HEART Score - HEART Score EKG: Significant ST-depression Age: > 65 Risk factors: 1-2 risk factors Troponin: Troponin T 9.840 ng/mL (0.00-0.029) H* D 09/14/20 04:00 Troponin: < normal limit - Critical Actions Critical Actions: 0-3 pts:0.9-1.7%risk of adverse cardiac event.Candidate for discharge Results - Labs CBC & Chem 7: 09/14/20 04:00 09/14/20 07:42 Labs: Laboratory Last Values WBC 5.8 K/mm3 (4.5-11.0) 09/14/20 04:00 RBC 4.83 M/mm3 (3.65-5.03) 09/14/20 04:00 Hgb 12.9 gm/dl (10.1-14.3) 09/14/20 04:00 Hct 40.2 % (30.3-42.9) 09/14/20 04:00 MCV 83 fl (79-97) 09/14/20 04:00 MCH 27 pg (28-32) L 09/14/20 04:00 MCHC 32 % (30-34) 09/14/20 04:00 RDW 15.6 % (13.2-15.2) H 09/14/20 04:00 Plt Count 98 K/mm3 (140-440) L 09/14/20 04:00 Lymph % (Auto) 6.9 % (13.4-35.0) L 09/14/20 04:00 Motley % (Auto) 5.6 % (0.0-7.3) 09/14/20 04:00 Eos % (Auto) 0.0 % (0.0-4.3) 09/14/20 04:00 Baso % (Auto) 0.1 % (0.0-1.8) 09/14/20 04:00 Lymph # (Auto) 0.4 K/mm3 (1.2-5.4) L 09/14/20 04:00 Motley # (Auto) 0.3 K/mm3 (0.0-0.8) 09/14/20 04:00 Eos # (Auto) 0.0 K/mm3 (0.0-0.4) 09/14/20 04:00 Baso # (Auto) Digital Artist 09/14/20 04:00 Seg Neutrophils % 87.4 % (40.0-70.0) H 09/14/20 04:00 Seg Neutrophils # 5.1 K/mm3 (1.8-7.7) 09/14/20 04:00 PT 13.1 Sec. (12.2-14.9) 09/13/20 21:55 INR 0.97 (0.87-1.13) 09/13/20 21:55 APTT 29.7 Sec. (24.2-36.6) 09/13/20 21:55 D-Dimer 449.68 ng/mlDDU (0-234) H 09/13/20 21:55 Sodium 133 mmol/L (137-145) L 09/14/20 07:42 Potassium 5.2 mmol/L (3.6-5.0) H 09/14/20 07:42 Chloride 100.1 mmol/L (98-107) 09/14/20 07:42 Carbon Dioxide 21 mmol/L (22-30) L 09/14/20 07:42 Anion Gap 17 mmol/L 09/14/20 07:42 BUN 25 mg/dL (7-17) H 09/14/20 07:42 Creatinine 0.8 mg/dL (0.6-1.2) 09/14/20 07:42 Estimated GFR > 60 ml/min 09/14/20 07:42 BUN/Creatinine Ratio 31 % 09/14/20 07:42 Glucose 201 mg/dL (65-100) H 09/14/20 07:42 Hemoglobin A1c 5.3 % (4-6) 09/14/20 07:42 Calcium 9.3 mg/dL (8.4-10.2) 09/14/20 07:42 Total Bilirubin 0.30 mg/dL (0.1-1.2) 09/13/20 21:55 AST 15 units/L (5-40) 09/13/20 21:55 ALT 7 units/L (7-56) 09/13/20 21:55 Alkaline Phosphatase 97 units/L (35-129) 09/13/20 21:55 Total Creatine Kinase 5507 units/L (30-135) H 09/14/20 04:00 CK-MB (CK-2) > 300.0 ng/mL (0.0-4.0) H 09/14/20 04:00 CK-MB (CK-2) Rel Index 5.4 (0-4) H 09/14/20 04:00 Troponin T 9.840 ng/mL (0.00-0.029) H* D 09/14/20 04:00 Total Protein 6.1 g/dL (6.3-8.2) L 09/13/20 21:55 Albumin 3.7 g/dL (3.9-5) L 09/13/20 21:55 Albumin/Globulin Ratio 1.5 % 09/13/20 21:55 Triglycerides 92 mg/dL (2-149) 09/14/20 04:00 Cholesterol 225 mg/dL (50-199) H 09/14/20 04:00 LDL Cholesterol Direct 161 mg/dL (50-130) H 09/14/20 04:00 HDL Cholesterol 59 mg/dL (40-59) 09/14/20 04:00 Cholesterol/HDL Ratio 3.81 % 09/14/20 04:00 Blood Type A POSITIVE 09/13/20 22:30 Antibody Screen Negative 09/13/20 22:30 Fonseca/IV: Voiding Method External Female Catheter IV Catheter Type [Left Peripheral IV Antecubital] IV Catheter Type [Left Hand] Peripheral IV Active Medications - Current Medications Current Medications: Generic Name Dose Route Start Last Admin Trade Name Freq PRN Reason Stop Dose Admin Hydrocodone Bitart/Acetaminophen 1 each 09/13/20 23:47 Shohola 5/325 PO Q6H PRN Pain, Moderate (4-6) Aspirin 81 mg 09/14/20 10:00 Baby Aspirin PO QDAY [facility] Atorvastatin Calcium 80 mg 09/14/20 22:00 Lipitor PO QHS [facility] Carvedilol 3.125 mg 09/13/20 23:45 Coreg PO BID [facility] Sodium Chloride 1,000 mls @ 42 mls/hr 09/13/20 22:00 09/13/20 22:18 Nacl 0.9% 1000 Ml IV 09/14/20 21:48 42 mls/hr ONCE ONE Administration Amiodarone HCl 900 mg/ 500 mls @ 16.667 mls/hr 09/13/20 23:00 09/14/20 01:55 Dextrose IV 0.5 mg/min DIRECT BALDO 16.667 mls/hr Titration Protocol 0.5 MG/MIN Nitroglycerin/Dextrose 50 mg in 250 mls @ 1.5 mls/hr 09/13/20 22:26 09/14/20 01:54 Tridil Drip 50mg/250ml IV 09/20/20 21:05 5 mcg/min TITR ONE 1.5 mls/hr Titration Protocol 5 MCG/MIN Sodium Chloride 1,000 mls @ 50 mls/hr 09/13/20 23:45 Nacl 0.9% 1000 Ml IV DIRECT BALDO Magnesium Oxide 400 mg 09/14/20 10:00 Mag-Ox PO QDAY BALDO Pantoprazole Sodium 40 mg 09/14/20 07:30 Protonix PO QDAC BALDO Potassium Chloride 20 meq 09/14/20 10:00 K-Dur PO QDAY BALDO Ticagrelor 90 mg 09/13/20 22:00 Brilinta PO BID BALDO
[2020-09-14] MEDS: TICAGRELOR 90 MG TAB PO SCH ×2 (09:57→10:59)
[2020-09-14] MEDS: carvediloL 3.125 MG TAB PO SCH ×2 (09:58→10:50)
[2020-09-14] MEDS ORDERED: POTASSIUM CHLORIDE ER 20 MEQ TAB PO SCH (10:00)
[2020-09-14] MEDS ORDERED: ASPIRIN 81 MG TAB CHEW PO SCH (10:00)
[2020-09-14] MEDS ORDERED: MAGNESIUM OXIDE 400 MG TAB PO SCH (10:00)
[2020-09-14] MEDS ORDERED: EPINEPHrine 1 MG/10 ML SYRINGE ONE (11:30)
[2020-09-14] MEDS ORDERED: FUROSEMIDE 40 MG/4 ML INJ IV ONE (12:00)
--- NOTE | 2020-09-14 12:17 | Death Summary ---
Summary - Providers Date of service: 09/14/20 Consults: 09/13/20 Consult to Cardiac Rehabilitation [CONS] Routine Reason For Exam: post pci 09/13/20 22:02 Consult to Physician [CONS] Urgent Comment: Consulting Provider: DARREN PIPER Physician Instructions: Reason For Exam: stemi Attending: YESSY MERINO - summary Date of admission: 09/13/20 22:36 Date of : 09/14/20 (11:45) - Final diagnosis (1) Cardiac arrest Note: Final diagnosis: (2) Acute respiratory failure with hypoxia Note: Final diagnosis: (3) CAD S/P percutaneous coronary angioplasty Note: Final diagnosis: (4) STEMI (ST elevation myocardial infarction) Note: Final diagnosis: (5) V-tach Note: Final diagnosis:
[2020-09-14 13:45] VITALS: BP 130/83
--- NOTE | 2020-09-15 15:39 | Event Note ---
Date: 09/14/20 Hubert maddie called this morning as patient was found to have asystole. ACLS protocol initiated. Patient recieved epi, bicarb, shocks and amiodarone. See RN chart flow for medication details. As patient just had STEMI the day prior, I discussed with Dr Schroeder and updated him while code was going on. No new recommendations by cardiology. ACLS protocol lasted for about 25 mins and patient had no ROSC. Patient was pronounced at 11:45am. Family was updated by attending physician
== END 2020-09-14 16:40 | DRG 246 ==
LOC: ED 21:27 → CC1 22:36 → IMCU 09-14 00:31 → OBSVTOIN 09-14 10:35
PROVIDERS: ADMIT Internal Medicine; ATTEND Internal Medicine
PROC: 027034Z Dilation of Coronary Artery, One Artery with Drug-eluting Intraluminal Device, Percutaneous Approach (ICD-10-PCS; principal; 2020-09-13)
PROC: 4A023N7 Measurement of Cardiac Sampling and Pressure, Left Heart, Percutaneous Approach (ICD-10-PCS; 2020-09-13)
PROC: B2111ZZ Fluoroscopy of Multiple Coronary Arteries using Low Osmolar Contrast (ICD-10-PCS; 2020-09-13)
PROC: B2151ZZ Fluoroscopy of Left Heart using Low Osmolar Contrast (ICD-10-PCS; 2020-09-13)
PROC: 5A2204Z Restoration of Cardiac Rhythm, Single (ICD-10-PCS; 2020-09-13)
PROC: 0BH17EZ Insertion of Endotracheal Airway into Trachea, Via Natural or Artificial Opening (ICD-10-PCS; 2020-09-14)
DX: I21.09 ST elevation (STEMI) myocardial infarction involving other coronary artery of anterior wall (principal); J96.01 Acute respiratory failure with hypoxia; I47.2 Ventricular tachycardia; I46.9 Cardiac arrest, cause unspecified; I25.10 Atherosclerotic heart disease of native coronary artery without angina pectoris; I25.5 Ischemic cardiomyopathy; I10 Essential (primary) hypertension; E78.5 Hyperlipidemia, unspecified; R73.9 Hyperglycemia, unspecified; C50.911 Malignant neoplasm of unspecified site of right female breast; M19.90 Unspecified osteoarthritis, unspecified site; G43.909 Migraine, unspecified, not intractable, without status migrainosus; E87.6 Hypokalemia; Z79.899 Other long term (current) drug therapy; Z90.11 Acquired absence of right breast and nipple
CPT/HCPCS: 31500; 36415; 71045; 80048; 80053; 80061; 82550; 82553; 83036; 84484; 85025; 85379; 85610; 85730; 86850; 86900; 86901; 92941; 92950; 93005; 93458; 94760; G0378; C1725; C1769; C1874; C1887; C1894; C9606; J0171; J0282; J0461; J1644; J2001; J2250; J2370; J2405; J3010; J3480; J7030; J7060; Q9967